=== PATIENT | male | born 1970 | race Caucasian/White ===

== ENCOUNTER 2021-09-24 06:00 | Emergency (ER) | payer BC ==
[~2021-09-24] VITALS: Ht 177.8 cm; Wt 83.9 kg
[2021-09-24 06:04] VITALS: BP 146/94
--- NOTE | 2021-09-24 06:05 | NUR ---
PT BIBA BLS. TAKEN TO BED 9
--- NOTE | 2021-09-24 06:31 | NUR ---
Dr. Barnhart examining patient.
--- NOTE | 2021-09-24 06:53 | NUR ---
XR AT BEDSIDE
--- NOTE | 2021-09-24 06:58 | NUR ---
50 Y/O M BIBA FOR FALL. PT WENT FOR A WALK AND FELL ON LEFT KNEE. PT DENIES ANY TRAUMA. PT ALSO STATES HES BEEN SOBER FOR 10 YEARS AND RECENTLY STARTED DRINKING. PT STATES HE HAS HAD CHRONIC BACK BACK AND TAKES NORCO AND TRAMADOL. PT STATES HE ALSO HAS A NEW GIRLFRIEND AND ALSO TOOK SOME ENCHANCEMENT PILLS. PT IS HARD TO AWAKEN AND STUTTERING. PT UNABLE TO WALK AT THIS TIME. A&OX3. PT HAS LEFT LEG ABRASION . PMH:ALCHOL ABUSE ALLERGIES: NONE
[2021-09-24] MEDS: BACITRACIN OINT 500 UNITS/GM PKT TP ONE (07:18)
--- NOTE | 2021-09-24 07:19 | NUR ---
Oliver bronson in [facility] - 09/24/21 at 0720 by SARAH BETH Pt report given to Quin RN. Transfer of care at this time.
--- NOTE | 2021-09-24 07:19 | NUR ---
Pt report given to Beba MOLINA. Transfer of care at this time.
--- NOTE | 2021-09-24 07:20 | NUR ---
Oliver bronson in [facility] - 09/24/21 at 0720 by SARAH BETH Pt report given to Quin RN. Transfer of care at this time.
--- NOTE | 2021-09-24 07:20 | NUR ---
RECEIVED REPORT FROM OTONIEL RN, TRANSFER OF CARE AT THIS TIME. PT RESTING IN BED AT THIS TIME, EVEN AND UNLABORED RESPIRATIONS NOTED.
[2021-09-24] MEDS ORDERED: BACI1PAC6 TP (07:41)
--- NOTE | 2021-09-24 08:11 | NUR ---
PT BACK FROM IMAGING AT THIS TIME
--- NOTE | 2021-09-24 09:21 | NUR ---
PT UP FOR D/C. ENDORSED FROM HEEL FINISHER THAT [facility], [facility] EX WOULD BE PICKING HIM UP. CONTACTED [facility] WHO STATED SHE IS NOT ABLE TO. WILL PROVIDE UBER FOR PT
--- NOTE | 2021-09-24 09:35 | NUR ---
PT ROAD TESTED, PT ABLE TO AMBULATED WITH STEADY GAIT UNASSISTED. PT A/O X4
[2021-09-24 09:40] VITALS: BP 136/82
--- NOTE | 2021-09-24 09:40 | NUR ---
Patient discharged with v/s stable. Written and verbal after care instructions ABOUT FALL PREVENTION AND ABRASION given and explained. Patient alert, oriented and verbalized understanding of instructions. Ambulatory with steady gait. All questions addressed prior to discharge. ID band removed. Patient advised to follow up with PMD. Rx of BACITRACIN given. Patient educated on indication of medication including possible reaction and side effects. Opportunity to ask questions provided and answered.
--- NOTE | 2021-09-24 09:41 | NUR ---
PT PROVIDED WITH HOMELESS PACKET AND SUBSTANCE ABUSE PACKET. HOUSE SUP CALLED FOR [employer]. FOOD PROVIDED Addendum: 09/24/21 at 0952 by [facility] PT HAS GERMAN ON HIM, PT WILL PURCHASE CAB FOR HIMSELF. MARKET RESEARCH SENIOR PROJECT MANAGER NOTIFIED.
[2021-09-26] MEDS ORDERED: BACI1PAC6 TP (12:20)
== END 2021-09-24 09:40 | disposition home or self-care (01) ==
LOC: MED 06:00
DX: S80.212A Abrasion, left knee, initial encounter (principal); F10.20 Alcohol dependence, uncomplicated; Y90.9 Presence of alcohol in blood, level not specified; I10 Essential (primary) hypertension; Z98.84 Bariatric surgery status; W18.30XA Fall on same level, unspecified, initial encounter; Y93.89 Activity, other specified; Y92.89 Other specified places as the place of occurrence of the external cause; Y99.8 Other external cause status
CPT/HCPCS: 70450; 73560; 99284; Q0092